=== PATIENT | male | born 1975 | race Caucasian/White ===

== ENCOUNTER 2020-05-25 12:48 | Outpatient (NON) | payer BC, SELFPAY ==
[2020-05-25 21:15] LABS: SARS-CoV-2 RNA PCR Positive
== END 2020-05-25 12:49 ==
LOC: ANHCOVIDDT 12:51
PROVIDERS: PCP Family Medicine Adolescent Medicine; Visit Provider Family Medicine Adolescent Medicine
DX: U07.1 COVID-19 (principal)
CPT/HCPCS: 87635; C9803; U0003

== ENCOUNTER → 2021-04-12 01:48 | Outpatient (CLI) | payer OTHER, SELFPAY ==
[2021-04-12 17:06] LABS: SARS-CoV-2 RNA PCR Negative
== END ==
PROVIDERS: PCP Family Medicine Adolescent Medicine; Visit Provider Physician Assistant
DX: Z20.822 Contact with and (suspected) exposure to COVID-19 (principal); R05 Cough; M79.10 Myalgia, unspecified site
CPT/HCPCS: C9803; U0003; U0005

== ENCOUNTER 2022-03-07 09:34 | Outpatient (CLI) | payer OTHER, SELFPAY ==
[2022-03-07 10:41] LABS: Hemoglobin A1C 8.7 % (<5.7)
[2022-03-07 11:28] LABS: Alanine Aminotransferase 47 U/L (6-50); Albumin Level 4.7 g/dL (3.5-5.1); Alkaline Phosphatase 105 U/L (38-126); Anion Gap 15 mmol/L (8-16); Aspartate Amino Transferase 54 U/L (17-59); Bilirubin,Total 0.6 mg/dL (0.2-1.3); Blood Urea Nitrogen 11 mg/dL (9-20); Calcium 9.6 mg/dL (8.4-10.2); Carbon Dioxide 21 mmol/L (22-30); Chloride 101 mmol/L (98-107); Cholesterol 168 mg/dL (0-200); Estimated Glomerular Filt Rate > 60; Glucose 195 mg/dL (65-110); HDL Direct 23 mg/dL; Potassium 4.1 mmol/L (3.4-5.0); Sodium 137 mmol/L (137-145); Triglycerides 510 mg/dL (<150)
[2022-03-07 11:39] LABS: LDL Cholesterol Direct 62 mg/dL
== END 2022-03-07 09:35 | disposition home or self-care (01) ==
LOC: ANHLAB 09:36
PROVIDERS: PCP Family Medicine Adolescent Medicine; Visit Provider Family Medicine Adolescent Medicine
DX: E11.9 Type 2 diabetes mellitus without complications (principal); E78.2 Mixed hyperlipidemia; K76.0 Fatty (change of) liver, not elsewhere classified
CPT/HCPCS: 36415; 80053; 80061; 83036

== ENCOUNTER 2023-04-11 03:42 | Emergency (ER) | payer OTHER, SELFPAY ==
[2023-04-11 03:43] VITALS: BP 159/88; PULSE 73; RESP 16; TEMP 36.3; O2SAT 99
--- NOTE | 2023-04-11 05:33 | PC.NURSE ---
This RN answered the patient call light after patient stated, I need a fucking medical professional to fucking come in here . This RN went to the patient room and explained to patient when the provider is able to come in and see him he would. Patient then looked at this RN and stated I just spent 200 fucking dollars and no one has answered his call light and given him another pillow, or blanket . This RN explained to the pt there was a critical patient and the doctor would be in with him shortly. The pt then proceeded to continue to shout at this RN. This RN explained to the patient this behavior would not be tolerated. Patient then shouted at this RN, Can I get fucking transferred to a hospital that [facility] cares . This RN explained the options to pt on his care. Pt then waved this RN out of his room. EDP notified and charge nurse made aware.
--- NOTE | 2023-04-11 05:50 | ED.BACK ---
HPI - Back Pain/Injury General Chief Complaint: Back Pain/Injury Stated Complaint: Back Pain Time Seen by Provider: 04/11/23 03:59 Source: patient Limitations: no limitations History of Present Illness HPI Narrative: Patient presents to emergency department complaining of back pain started on Friday noting that he was pulling stuff out of his car while bending over of the waist of flexion position and when he pulled he felt the onset of a sharp pain in his left lower back that has been present ever since. Patient admits to history of chronic low back pain for which he has been to physical therapy in addition to having MRIs is known to have disc herniations. Patient states that she took Aleve for the pain at approximately 11:00 p.m. without any significant relief. Patient said the pain is better when he is walking around and overall worse with certain movements such as bending over. This notes that the pain is constant at a mild intensity and radiates slightly to his left proximal lateral hip. Patient denies fever, history of cancer, weight loss, urinary incontinence, difficulty urinating, stool incontinence, dysuria, hematuria, numbness, weakness, nausea, vomiting, diarrhea, melena, hematochezia. Patient states this pain feels similar to his history of herniated discs. Patient is at this time already once this switching to help with his discomfort and follow up to an orthopedic or neurosurgeon to again begin physical therapy. Patient denies history of IV drug use. Related Data Allergies Allergy/AdvReac Type Severity Reaction Status Date / Time dulaglutide [From Trulicity] AdvReac Intermediate Abdominal Verified 04/11/23 03:52 Pain semaglutide [From Ozempic] AdvReac Intermediate Abdominal Verified 04/11/23 03:52 Pain Review of Systems Review of Systems: A 10 system review of systems was completed on the patient and is negative except for what is stated in the HPI. Nursing and ancillary documentation was reviewed. [facility] Past Medical History Medical History History of nephrolithiasis Family History Family History (Updated 03/07/22 @ 08:24 by Sarahy Meneses MA) Father CAD (coronary artery disease) Acute myocardial infarction Cerebrovascular accident Depression Diabetes mellitus Heart disease Hypertension Sibling Depression Diabetes mellitus Mother Depression Grandparent Diabetes mellitus Grandparent Diabetes mellitus Social History Social History (Updated 03/07/22 @ 08:26 by Sarahy Meneses MA) Smoking status: Smoker, status unknown Tobacco type: cigarettes Second hand tobacco smoke exposure: No Smoking end date: 07/21/20 Alcohol intake: never Substance use: current Substance use type: marijuana Living arrangements: with family Occupation/Education: other 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 Please see the nursing chart for further information. There is no relevant family history pertinent to the presenting complaint. Exam Narrative: CONST: No acute distress. Well nourished. HENMT: Head is normocephalic and atraumatic. Moist mucous membranes. No posterior oropharynx erythema. EYES: No conjunctival icterus, injection, or pallor. PERRL. NECK: No meningeal signs. RESP: Able to speak in full sentences. Normal respiratory effort. CTAB. CARDIO: Regular rate. Regular rhythm. 2+ DP and radial pulses bilaterally. GI: Nondistended. No tenderness to palpation. Soft. : No CVA tenderness to palpation. SKIN: No rashes or lesions noted on exposed skin. NEURO: Oriented x3. Moves all extremities. No saddle anesthesia. Motor strength is 5/5
[2023-04-11] MEDS: KETOROLAC 30 MG/ML VIAL (*BKC) 15 MG IM (06:00)
[2023-04-11] MEDS: diazePAM (*CRX) 5 MG TABLET 10 MG PO (06:01)
[2023-04-11 06:14] VITALS: BP 144/77; PULSE 69; RESP 18; O2SAT 96
== END 2023-04-11 06:14 | disposition home or self-care (01) ==
PROVIDERS: Emergency Provider Student in an Organized Health Care Education/Training Program; PCP Family Medicine Adolescent Medicine
DX: S39.012A Strain of muscle, fascia and tendon of lower back, initial encounter (principal); M62.830 Muscle spasm of back; M54.16 Radiculopathy, lumbar region; Z87.891 Personal history of nicotine dependence; Z87.442 Personal history of urinary calculi; Z79.84 Long term (current) use of oral hypoglycemic drugs; X50.9XXA Other and unspecified overexertion or strenuous movements or postures, initial encounter
CPT/HCPCS: 96372; 99283; A9270; J1885

== ENCOUNTER 2023-11-29 21:20 | Emergency (ER) | payer OTHER, SELFPAY ==
--- NOTE | ~2023-11-29 | XR_ITS ---
XR chest 2V DATE: 11/29/2023 22:00 INDICATION: Chest pain, chest pressure TECHNIQUE: PA and lateral views COMPARISON: 12/04/2005 2 view chest, reported normal FINDINGS: Normal heart size. Minimal atelectasis is suggested at the lung bases. The lungs are otherw ise clear. No pleural effusion or pulmonary ossification or pneumothorax. IMPRESSION: Minimal atelectasis at the lung bases Reviewed, dictated and finalized at location A.
--- NOTE | 2023-11-29 21:21 | ECG_ITS ---
SEE SCANNED COPY FOR CONFIRMED REPORT MTDD
[2023-11-29 21:26] VITALS: BP 156/93; PULSE 119; RESP 22; TEMP 36.4; O2SAT 97
[2023-11-29 21:46] LABS: Basophils Absolute Auto 0.1 K/mm3 (0.0-0.1); Basophils Percent Auto 0.9 % (0.2-1.2); Eosinophils Absolute Auto 0.2 K/mm3 (0-0.3); Eosinophils Percent Auto 1.7 % (0-4.4); Hematocrit 49.1 % (42.0-52.0); Immature Granulocyte Absolute 0.07 K/mm3 (0.00-0.031); Immature Granulocyte Percent A 0.8 % (0-0.5); Lymphocytes Absolute Auto 1.98 K/mm3 (0.9-3.2); Lymphocytes Percent Auto 22.6 % (18.3-44.2); Mean Corpuscular HGB Conc 32.6 g/dl (32-36); Mean Corpuscular Hemoglobin 29.4 pg (26-34); Mean Corpuscular Volume 90.1 fl (80-100); Mean Platelet Volume 12.8 fl (7.4-10.4); Monocytes Absolute Auto 0.6 K/mm3 (0.1-0.6); Monocytes Percent Auto 6.5 % (2.6-8.5); Neutrophils Absolute Auto 5.9 K/mm3 (1.3-6.7); Neutrophils Percent Auto 67.5 % (45.5-73.1); Platelet Count Result 153 k/mm3 (150-375); Red Blood Count 5.45 M/mm3 (4.6-6.20); Red Cell Distribution Width 14.4 % (11.5-14.5); White Blood Count 8.8 K/mm3 (4.5-10.0)
[2023-11-29 21:55] LABS: Partial Thromboplastin Time 27.7 Seconds (22.3-36.8); Prothrombin Time 13.9 Seconds (11.1-14.7)
[2023-11-29 21:56] LABS: Alanine Aminotransferase 47 U/L (6-50); Albumin Level 4.8 g/dL (3.5-5.1); Alkaline Phosphatase 102 U/L (38-126); Anion Gap 11 mmol/L (4-12); Aspartate Amino Transferase 59 U/L (17-59); Bilirubin,Total 0.7 mg/dL (0.2-1.3); Blood Urea Nitrogen 14 mg/dL (9-20); Calcium 9.9 mg/dL (8.4-10.2); Carbon Dioxide 22 mmol/L (22-30); Chloride 106 mmol/L (98-107); Estimated CRCL calculation 95 ml/min; Estimated Glomerular Filt Rate > 60; Glucose 277 mg/dL (65-110); Lipase 96 U/L (23-300); Potassium 3.9 mmol/L (3.4-5.0); Sodium 139 mmol/L (137-145)
[2023-11-29 22:06] LABS: Troponin I < 0.012 ng/mL (0.000-0.034)
[2023-11-30 00:41] VITALS: RESP 16; O2SAT 97
--- NOTE | 2023-11-30 00:58 | ED.GENADULT ---
HPI - General Adult General Chief complaint: Overdose Stated complaint: palpitations Time Seen by Provider: 11/29/23 23:38 History of Present Illness HPI narrative: This is a 48-year-old male, with history of diabetes, and hyperlipidemia, presents emergency department complaining of chest tightness, and shortness of breath. The patient states this evening he took 100 mg THC (unintentionally) and began feeling anxious as well as though he ?cannot breathe of, though obviously I am. ? He states the sensation improved with lying on his stomach and walking. He denies loss of consciousness, weakness/numbness, vomiting, or bleeding from any source. He has no other complaints at this time. Related Data Allergies Allergy/AdvReac Type Severity Reaction Status Date / Time dulaglutide [From Trulicity] AdvReac Intermediate Abdominal Verified 11/26/23 15:09 Pain semaglutide [From Ozempic] AdvReac Intermediate Abdominal Verified 11/26/23 15:09 Pain Review of Systems Review of Systems: All systems reviewed & are unremarkable except as noted in HPI and below PMFSH Past Medical History Medical History (Updated 11/30/23 @ 02:25 by Henri Fong MD) Gastro-esophageal reflux disease without esophagitis History of nephrolithiasis Mixed hyperlipidemia Obstructive sleep apnea (adult) (pediatric) Type 2 diabetes mellitus without complications Surgical History Surgical History (Updated 11/30/23 @ 02:25 by Henri Fong MD) No significant past surgical history Family History Family History Father CAD (coronary artery disease) Acute myocardial infarction Cerebrovascular accident Depression Diabetes mellitus Heart disease Hypertension Sibling Depression Diabetes mellitus Mother Depression Grandparent Diabetes mellitus Grandparent Diabetes mellitus Social History Social History Smoking status: Smoker, status unknown Tobacco type: cigarettes Second hand tobacco smoke exposure: No Smoking end date: 07/21/20 Alcohol intake: never Substance use: current Substance use type: marijuana Living arrangements: with family Occupation/Education: other 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 HEAD: Normocephalic, atraumatic. EYES: PERRLA and EOMI. Pupils dilated to 4 mm and equal bilaterally CHEST: Clear to auscultation. No respiratory distress. No wheezes rales or rhonchi HEART: Regular rate and rhythm. No murmur heard. Normal peripheral pulses. ABDOMEN: Soft, nontender, nondistended, normal active bowel sounds. EXTREMITIES: Normal range of motion. No edema. SKIN: Warm, dry, no rash. NEURO: Alert and oriented x3. No focal deficit. Moving all 4 limbs spontaneously PSYCH: Normal mood and affect. Course Course Emergency Course: 00:45 -CBC unremarkable. Chemistries within normal limits aside from blood glucose of 277. Troponin negative. Chest x-ray not concerning for acute cardiopulmonary process by my interpretation. EKG not concerning for ischemia. I suspect the patient's symptoms are related to unintentional THC overdose. The patient states he feels improved. Heart score 2. Will discharge. I discussed the findings and recommendations with the patient. Discussed return and emergency precautions including signs/symptoms of ACS in respiratory distress. The patient voiced understanding and agreement with the plan. All questions answered to his satisfaction. Vital Signs Vital signs: Vital Signs Temperature 97.5 F L 11/29/23 21:26 Pulse Rate 119 H 11/29/23 21:26 Respiratory Rate 22 H 11/29/23 21:26 Blood Pressure 156/93 H 11/29/23 21:26 Pulse Oxim
[2023-11-30 01:20] VITALS: BP 120/79; PULSE 80; RESP 19; O2SAT 94
== END 2023-11-30 01:23 | disposition home or self-care (01) ==
PROVIDERS: Emergency Provider Preventive Medicine Aerospace Medicine; PCP Family Medicine Adolescent Medicine
DX: R00.0 Tachycardia, unspecified (principal); T40.711A Poisoning by cannabis, accidental (unintentional), initial encounter; E11.9 Type 2 diabetes mellitus without complications; E78.2 Mixed hyperlipidemia; K21.9 Gastro-esophageal reflux disease without esophagitis; G47.33 Obstructive sleep apnea (adult) (pediatric); Z87.891 Personal history of nicotine dependence; I45.9 Conduction disorder, unspecified; Z79.84 Long term (current) use of oral hypoglycemic drugs
CPT/HCPCS: 36415; 71046; 80053; 83690; 84484; 85025; 85610; 85730; 93005; 99284

== ENCOUNTER 2025-07-18 09:11 | Outpatient (CLI) | payer OTHER, SELFPAY ==
--- OUTSIDE RECORDS SUMMARY | 2025-07-18 09:23 | XMS_ITS | Clinical Summary ---
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 Gender Identity Not on file Sexual Orientation Not on file Last Filed Vital Signs Vital Sign Reading Time Taken Comments Blood Pressure 150/82 03/21/2021 10:02 PM CDT Pulse 60 03/21/2021 10:02 PM CDT Temperature 36.5 C (97.7 F) 03/21/2021 8:00 PM CDT Respiratory Rate 18 03/21/2021 10:02 PM CDT Oxygen Saturation 95% 03/21/2021 10:02 PM CDT Inhaled Oxygen Concentration - - Weight 106 kg (233 lb 11 oz) 03/21/2021 8:00 PM CDT Height 170.2 cm (5' 7) 03/21/2021 8:00 PM CDT Body Mass Index 36.6 03/21/2021 8:00 PM CDT Plan of Treatment Not on file Insurance [facility] [employer] GENERIC Member Subscriber Plan / Payer ( fective 2021-Present) Name:Ian Leal Relation to Subscriber:Self Name:Ian Leal Payer ID:[id number] Group ID:Not on file 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
--- OUTSIDE RECORDS SUMMARY | 2025-07-18 09:23 | XMS_ITS | Clinical Summary ---
Author Organization [facility] Address [facility] [place] [address] Care Team Providers Care White Kid Buffer Name Role Phone None, Provider MD Primary Care Provider Unavaila ble Allergies No known active allergies Medications atorvastatin 20 MG tablet 06/11/2021 Active fenofibrate 160 MG tablet 06/11/2021 Active glimepiride 2 MG tablet 06/11/2021 Active meloxicam 15 MG tablet 06/20/2021 Active metFORMIN ER 500 MG 24 hr tablet 04/13/2021 Act florecita pantoprazole EC 40 MG tablet 06/11/2021 Active pioglitazone 30 MG tablet 06/11/2021 Active FARXIGA 10 MG Tab Take 1 tablet by mouth daily. 03/07/2022 Active Active Problems Problem Noted Date Diagnosed Date Foraminal stenosis of lumbar region 09/25/2021 Other intervertebral disc displacement, lumbar r egion 09/25/2021 Lumbar radiculopathy 08/30/2021 Acute midline low back pain with left-sided scia frantz 08/30/2021 Other intervertebral disc degeneration, lumbar r egion 2021 Pyriformis syndrome, right 2021 Sacroiliitis 2021 Family History Medical History Relation Comments Stroke Father Cancer Mother Relation Status Comments Father Mother Social History Tobacco Use Types Packs/Day Years Used Date Smoking Tobacco: Former Smokeless Tobacco: Never Sex and Gender Information Value Date Recorded Sex Assigned at Not on file Legal Sex Male 4:36 PM CDT Gender Identity Male 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 Sexual Orientation Straight 08/02/2021 4: 27 PM 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 Last Filed Vital Signs Vital Sign Reading Time Taken Comments Blood Pressure 152/94 05/10/2022 2:47 PM CDT Pulse 94 05/10/2022 2:47 PM CDT Temperature 36.9 C (98.4 F) 05/10/2022 2:47 PM CDT Respiratory Rate 20 03/29/2022 3:37 PM CDT Oxygen Saturation 97% 05/10/2022 2:47 PM CDT Inhaled Oxygen Concentration - - Weight 111.6 kg (246 lb) 05/10/2022 2:47 PM CDT Height 170.2 cm (5' 7) 05/10/2022 2:47 PM CDT Body Mass Index 38.53 05/10/2022 2:47 PM CDT Plan of Treatment Health Maintenance Due Date Last Done Comments Colorectal Cancer Screening Colonoscopy (10 Years) 1974 Annual Physical 1977 Hepatitis C 1992 DTaP, Tdap and Td Vaccines ( 1 - Tdap) 1993 Hepatitis B Vaccines (1 of 3 - 19+ 3-dose series) 1993 Pneumococcal Vaccine: 50+ Years (1 of 1 - PCV) 2024 Zoster Vaccines (1 of 2) 2024 COVID-19 Vaccine (3 - 2024-2 6 season) 2025 03/28/2021, 03/07/2021 Influenza Adult (#1) 2025 Hepatitis A Vaccines Aged Out 11/09/2008 No long er eligible based on patient's age to complete this topic Meningococcal B Vaccine Aged Out No l onger eligible based on patient's age to complete this topic Meningococcal Vaccine Aged Out No sunny nikita eligible based on patient's age to complete this topic RSV Immunizations Under 20 Months Aged Out No longer eligible b ased on patient's age to complete this topic Insurance [employer] [place] [address] [employer] Care Teams White Kid Buffer Relationship Specialty Start Date End Date None, Provider, PCP - General 10/14/19
--- OUTSIDE RECORDS SUMMARY | 2025-07-18 09:23 | XMS_ITS | Clinical Summary ---
Author Organization [facility] Address [address] [place] [address] [place] [address] Care Team Providers Care Retail Marketing Executive Name Role Phone Bobby Benjamin MD Primary Care Provider + Source Comments [facility],non-owned Affiliates and Associated Physician Practices is amultiple site organization consisting of ambulatory clinics and hospital sitesin [place], [place], [place] and [place]. This disclosure is being madepursuant to the Care Everywhere program and may not contain all information available regarding this patient. Last updated 18.[facility] Medications * Be aware that medications may not be up to date on this document. Alwaysverify current medications with the patient. atorvastatin (LIPITOR) 20 MG tablet Take 20 mg by mouth DAILY. 08/08/2016 Active insulin syringe-needle (BD ULTRAFINE II) 31G X 12/03 1 ML syringe 5 07/01/2016 Active insulin glargine (LANTUS) vial Inject 30 Units subcutaneous ly. 05/01/2016 Active fenofibrate (LOFIBRA) 160 MG tablet Take 1 tablet by mouth DAILY. 02/02/2016 Active metFORMIN ER 24hr (GLUCOPHAGE XR) 500 MG tablet Take 1 tablet by mouth DAILY. 04/04/2016 Active ibuprofen (MOTRIN) 600 MG tablet Take 1 tablet by mouth TID. 04/19/2016 Active glimepiride (AMARYL) 2 MG tablet Take 2 tablets by mouth DAILY. 02/02/2016 Active Active Problems Problem Noted Date Diagnosed Date Calculus of kidney 04/26/2016 Family History Medical History Relation Name Comments Diabetes Father Status: Alive CVA Maternal Grandfather Status: Heart Disease Maternal Grandmother Status : Lung Disease Mother Status: d Diabetes Paternal Grandfather Status: None Known Paternal Grandmother Status: Relation Name Status Comments Father Maternal Grandfather Maternal Grandmother Mother Paternal Grandfather Paternal Grandmother Social History Tobacco Use Types Packs/Day Years Used Date Smoking Tobacco: Former Smokeless Tobacco: Former Alcohol Use Standard Drinks/Week Comments Yes 0 (1 standard drink = 0.6 oz pur e alcohol) Sex and Gender Information Value Date Recorded Sex Assigned at Not on file Legal Sex Male 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 Gender Identity Not on file Sexual Orientation Not on file Last Filed Vital Signs Vital Sign Reading Time Taken Comments Blood Pressure 137/81 08/08/2016 11:49 AM THERAPEUTIC RADIOLOGIST Pulse 85 08/08/2016 11:49 AM THERAPEUTIC RADIOLOGIST Temperature 36.6 C (97.8 F) 08/08/2016 11:49 AM THERAPEUTIC RADIOLOGIST Respiratory Rate 12 05/01/2016 4:35 PM CDT Oxygen Saturation 97% 08/08/2016 11:49 AM THERAPEUTIC RADIOLOGIST Inhaled Oxygen Concentration - - Weight 116.6 kg (257 lb) 08/08/2016 11:49 AM THERAPEUTIC RADIOLOGIST Height 170.2 cm (5' 7) 08/08/2016 11:49 AM THERAPEUTIC RADIOLOGIST Body Mass Index 40.25 08/08/2016 11:49 AM THERAPEUTIC RADIOLOGIST Plan of Treatment Health Maintenance Due Date Last Done Comments COLOGUARD (AGES 45-75) - COL ON CA SCREENING 1974 COLON MONITORING 1974 COLONOSCOPY - COLON CA SCREENING 1974 CT COLONOGRAPHY - COLON CA SCREENING 1974 Colorectal Cancer Screening 1974 FIT - COLON CA SCREENING 1974 FLEX SIG - COLON CA SCREENING 1974 HIV SCREENING 1989 HEPATITIS C SCREENING 06/23/1992 DTAP/TDAP/TD VACCINES (1 - Tdap) 1993 HEPATITIS B VACCINE (1 of 3 - 19+ 3-dose series) 1993 PNEUMOCOCCAL VACCINE 50+ (1 of 1 - PCV) 2024 ZOSTER VACCINE (1 of 2) 2024 DEPRESSION SCREENING 07/21/2024 COVID-19 VACCINE (1 - 2024-2 6 season) 2025 INFLUENZA VACCINE (#1) 2025 HIB VACCINE Aged Out No longer eligi ble based on patient's age to complete this topic HPV VACCINE Aged Out No longer eligi ble based on patient's age to complete this topic MENINGOCOCCAL (Group B) VACC INE SHARED DECISION-MAKING Aged Out No longer eligibl e based on patient's age to complete this topic MENINGOCOCCAL GROUPS A/C/Y/W VACCINE Aged Out No longer eligible b ased on patient's age to complete this topic Care Teams Retail Marketing Executive Relationship Specialty Start Date End Date Bobby Benjamin MD [phone] [address] PCP - General 04/17/16
[2025-07-18 09:32] LABS: Hematocrit 50.3 % (42.0-52.0); Hemoglobin 16.7 g/dL (14.0-18.0); Immature Platelet Fraction Pct 17.5 % (0.9-11.2); Mean Corpuscular HGB Conc 33.2 g/dl (32-36); Mean Corpuscular Hemoglobin 30.0 pg (26-34); Mean Corpuscular Volume 90.3 fl (80-100); Platelet Count Result 147 k/mm3 (150-375); Red Blood Count 5.57 M/mm3 (4.6-6.20); White Blood Count 10.8 K/mm3 (4.5-10.0)
[2025-07-18 10:19] LABS: Alanine Aminotransferase 44 U/L (6-50); Albumin Level 4.6 g/dL (3.5-5.1); Alkaline Phosphatase 106 U/L (38-126); Anion Gap 8 mmol/L (4-12); Aspartate Amino Transferase 49 U/L (17-59); Bilirubin,Total 0.9 mg/dL (0.2-1.3); Blood Urea Nitrogen 12 mg/dL (9-20); Calcium 9.8 mg/dL (8.4-10.2); Carbon Dioxide 24 mmol/L (22-30); Chloride 108 mmol/L (98-107); Cholesterol 177 mg/dL (0-200); Estimated Glomerular Filt Rate > 60; Glucose 188 mg/dL (65-110); HDL Direct 29 mg/dL; Potassium 4.2 mmol/L (3.4-5.0); Sodium 140 mmol/L (137-145); Total Protein 8.2 g/dL (6.3-8.2); Triglycerides 335 mg/dL (<150)
[2025-07-18 10:23] LABS: Hemoglobin A1C 9.2 % (<5.7)
[2025-07-18 10:26] LABS: Thyroid Stimulating Hormone Reflex 1.490 uIU/mL (0.465-4.68)
[2025-07-18 11:15] LABS: Vitamin B12 434.0 pg/mL (239-931)
== END 2025-07-18 09:12 | disposition home or self-care (01) ==
LOC: ANHLAB 09:12
PROVIDERS: PCP Nurse Practitioner Family; Visit Provider Nurse Practitioner Family
DX: E78.2 Mixed hyperlipidemia (principal); E11.65 Type 2 diabetes mellitus with hyperglycemia; K21.9 Gastro-esophageal reflux disease without esophagitis; G47.33 Obstructive sleep apnea (adult) (pediatric)
CPT/HCPCS: 36415; 80053; 80061; 82607; 83036; 84443; 85027; 85055